=== PATIENT | male | born 1945 | race Caucasian/White ===

== ENCOUNTER 2023-11-04 10:08 | Outpatient (AMB) | payer MEDICARE, BC, SELFPAY ==
[2023-11-04 10:16] VITALS: BMI 25.8
--- NOTE | 2023-11-04 10:16 | MHC.OFFVIS ---
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 The patient states that at times his right leg will ?go numb?. He does have progressively worsening back pain as well. He denies any groin pain. He has done physical therapy which aggravated his symptoms. He has also tried Tylenol and anti-inflammatory medicines which gave him minimal relief. Allergies No Known Allergies Allergy (Verified 11/04/23 10:18) Physical Exam Vital Signs: BMI result Body Mass Index 25.8 Const Other: Well-nourished well-developed very friendly male awake alert and oriented x3 in no acute distress Back/Spine/Pelvis Other: Low back examination shows right-sided paraspinal muscle tenderness, pain with range of motion, positive straight leg raise test on the right at 70 degrees, 4/5 strength with testing of his right hip flexors and knee extensors when compared to 5/5 strength on his left side Extrem Other: Bilateral lower extremity examination shows good capillary refill, no skin lesions noted, normal sensation light touch Bilateral hip examination shows minimal discomfort with range of motion, mild tenderness along his greater trochanteric bursae, no overlying skin lesions Results Reviewed Results Reviewed: X-rays of the patient's bilateral hip show mild diffuse joint space narrowing, no acute bony abnormalities Time x-rays of the patient's lumbar spine shows moderate diffuse degenerative disc disease, no acute bony abnormalities Assessment & Plan Assessment & Plan (1) Low back pain: Code(s): M54.50 - Low back pain, unspecified (2) Chronic hip pain, bilateral: Code(s): M25.551 - Pain in right hip; M25.552 - Pain in left hip; G89.29 - Other chronic pain Plan Mr. Villalobos presents with progressively worsening low back pain which radiates down his right leg as well as associated right leg weakness possibly due to lumbar stenosis or a disc herniation. Thus, I will send the patient for an MRI of his lumbar spine for further evaluation. I will call him with the MRI results once they are available. He will call me prior to that time should his symptoms worsen in any way. Feel free to call me at any time should questions regarding his orthopedic management arise. I spent 22 minutes in reviewing the patient's records and imaging studies, seeing the patient and documenting in the medical record. Orders: Orders XR pelvis 1-2V Today G89.29 - Other chronic pain, M25.551 - Pain in right hip, M25.552 - Pain in left hip XR lumbar spine 2-3V Today M54.50 - Low back pain, unspecified MR lumbar spine wo con Today M54.50 - Low back pain, unspecified Coding Level of Care Code Est Pt Level 2 (44291) Diagnoses Low back pain M54.50 Chronic hip pain, bilateral M25.551; M25.552; G89.29
== END 2023-11-04 11:17 | disposition home or self-care (01) ==
PROVIDERS: Visit Provider Orthopaedic Surgery
DX: M54.50 Low back pain, unspecified (principal); M25.551 Pain in right hip; M25.552 Pain in left hip; G89.29 Other chronic pain
CPT/HCPCS: 99213

== ENCOUNTER 2023-11-04 10:08 | Outpatient (REF) | payer MEDICARE, BC, SELFPAY ==
--- NOTE | ~2023-11-04 | XR_ITS ---
EXAMINATION: XR LUMBAR SPINE XR PELVIS CLINICAL INFORMATION: Low back pain, pain in right hip. COMPARISON: None available. TECHNIQUE: AP view of the pelvis. 3 views of the lumbar spine. FINDINGS: AP PELVIS: Bones are diffusely demineralized. Mild degenerative changes in the bilateral hips. Sclerotic focus overlying the inferomedial aspect of the right femoral head, possibly within bone and soft tissue. Dedicated views of the right hip recommended for further evaluation. Mild degenerative changes in the bilateral sacroiliac joints. LUMBAR SPINE: Mild leftward curvature of the lumbar spine. Bones are diffusely demineralized. Atherosclerotic aortoiliac calcifications. Straightening of the normal lumbar lordosis. Degenerative changes in the imaged lower thoracic spine. Advanced multilevel lumbar spondylosis with multilevel loss of disc space height and hypertrophic change. XR/XR pelvis 1-2V IMPRESSION: 1. Advanced multilevel lumbar spondylosis. 2. Mild degenerative changes in bilateral hips. 3. Sclerotic focus overlying the inferomedial aspect of the right femoral head, possibly within bone and soft tissue. Dedicated views of the right hip recommended for further evaluation. 4. Mild degenerative changes in the bilateral sacroiliac joints.
--- NOTE | ~2023-11-04 | XR_ITS ---
EXAMINATION: XR LUMBAR SPINE XR PELVIS CLINICAL INFORMATION: Low back pain, pain in right hip. COMPARISON: None available. TECHNIQUE: AP view of the pelvis. 3 views of the lumbar spine. FINDINGS: AP PELVIS: Bones are diffusely demineralized. Mild degenerative changes in the bilateral hips. Sclerotic focus overlying the inferomedial aspect of the right femoral head, possibly within bone and soft tissue. Dedicated views of the right hip recommended for further evaluation. Mild degenerative changes in the bilateral sacroiliac joints. LUMBAR SPINE: Mild leftward curvature of the lumbar spine. Bones are diffusely demineralized. Atherosclerotic aortoiliac calcifications. Straightening of the normal lumbar lordosis. Degenerative changes in the imaged lower thoracic spine. Advanced multilevel lumbar spondylosis with multilevel loss of disc space height and hypertrophic change. XR/XR lumbar spine 2-3V IMPRESSION: 1. Advanced multilevel lumbar spondylosis. 2. Mild degenerative changes in bilateral hips. 3. Sclerotic focus overlying the inferomedial aspect of the right femoral head, possibly within bone and soft tissue. Dedicated views of the right hip recommended for further evaluation. 4. Mild degenerative changes in the bilateral sacroiliac joints.
== END 2023-11-04 10:09 | disposition home or self-care (01) ==
LOC: HO.HOSX 10:08
PROVIDERS: Visit Provider Orthopaedic Surgery
DX: M25.551 Pain in right hip (principal); M25.552 Pain in left hip; M54.50 Low back pain, unspecified; G89.29 Other chronic pain
CPT/HCPCS: 72100; 72170; 99212

== ENCOUNTER 2023-12-30 10:28 | Outpatient (AMB) | payer MEDICARE, BC, SELFPAY ==
--- NOTE | 2023-12-30 11:17 | HO.SPINEOV ---
Intake Intake Visit Reasons: LBP Intake Note: Mr. 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 HPI: This 78-year-old male is referred by orthopedic surgery for right hip pain that comes with walking and standing. Additionally, he feels his legs are fatigued after walking or standing. He can not walk the dark anymore for long times. He can not stand on the market for long periods of time and he prefers to sit down. The right hip pain was treated with acupuncture which actually alleviated the symptoms however the fatigue in the legs persists. Hip pathology was excluded by Dr. Downs, orthopedic surgeon PMH: Diabetes mellitus, type 2 Stent placement 6 years ago. An angiogram on year ago was apparently normal. Knee tendon repair, retinal detachment, cataract Medications: SOB diet, metoprolol, metformin, rosuvastatin, pantoprazole Allergies: NKDA Social history: Nonsmoker. Still works Physical Exam: Pleasant male. Normal strength sensation and reflexes. No pathological reflexes. Inward and outward rotation of the right hip is nonpainful. Radiological Studies: MRI done at [place] on 11/18/2023 shows severe L4-5 central stenosis Impression/Plan: This 78-year-old male is suffering from neurogenic claudication due to severe L4-5 central stenosis. He is contemplating surgery. We discussed an L4-5 laminotomy in day surgery. He will need to have a cardiology clearance and primary care physician clearance before surgery. He will call my office if he wants to proceed. Thank you for allowing me to participate in your patients care. total time spent was 50 minutes in counseling ,coordination of plan, personal review of imaging, surgical decision making and subsequent plan Tacos Vidales MD, PhD Spine Fellowship Trained Neurosurgeon Director, [facility] Coding Level of Care Code New Pt Level 4 (09685) Diagnoses Lumbar stenosis with neurogenic claudication M48.062
== END 2023-12-30 11:57 | disposition home or self-care (01) ==
PROVIDERS: Referring Provider Orthopaedic Surgery; Visit Provider Neurological Surgery
DX: M48.062 Spinal stenosis, lumbar region with neurogenic claudication (principal)
CPT/HCPCS: 99204

== ENCOUNTER → 2023-12-30 10:28 | Outpatient (BNVA) | payer MEDICARE, BC, SELFPAY | PROVIDERS: Visit Provider Neurological Surgery | DX: M48.062 Spinal stenosis, lumbar region with neurogenic claudication (principal) | CPT/HCPCS: 99202 ==

== ENCOUNTER 2024-03-17 10:30 | Day surgery (SDC) | payer MEDICARE, SELFPAY ==
[2024-03-03 12:19] VITALS: BP 123/60; PULSE 68; RESP 16; O2SAT 98; BMI 23.5
--- NOTE | 2024-03-03 12:48 | P.CONAN_ITS ---
Documented by User: Kelsey Beckham NP 03/16/24 15:16 HPI - Anesthesia Eval Consult details Narrative: 78yo M for?L4-5 Laminotomy, 03/17/24 Medically cleared at [facility] No recent illness No CP/SOB with very limited activity. Able to walk dog for short distances 3-4 x daily DM. FBS ~100's CAD s/p stent 2011. Only following with PCP now CKD. Follows with Nephro. Last office visit 11/2023. Reviewed incrase in creat. No changes to regimen at that visit with 6 month f/u. Anesthesia Pre-Procedure Meds Is the patient on any of the following meds?: GLP1/DPP4 and SGLT2 Inhib If yes to any meds - educate patient: Pt education - increased risk of aspiration and/or euvolemic DKA and Pt education - possibility of cancelled proc at provider's discretion PMFSH Active Problems Active Problems: All Active Problems Lumbar stenosis with neurogenic claudication (Acute) Low back pain (Acute) Chronic hip pain, bilateral (Acute) Past Medical History Medical History (Updated 03/03/24 @ 12:44 by Gretchen Mcknight RN) Hx of dislocation of elbow Spinal stenosis Weakness of both legs Foot pain, left Gout Diabetes Chronic kidney disease, stage 3b GERD (gastroesophageal reflux disease) Rupture quadriceps tendon Hyperlipemia CAD (coronary artery disease) Family History Family history of problems with anesthesia: No Surgical History Surgical History (Updated 03/03/24 @ 12:19 by Gretchen Mcknight RN) Hx of bilateral cataract extraction Hx of knee surgery History of detached retina repair Hx of colonoscopy History of excision of pilonidal cyst H/O heart artery stent (~2011) History of Problems with Anesthesia: No Social History Social History (Updated 03/03/24 @ 14:24 by Gretchen Mcknight RN) Household Members: Significant Other Housing: House Are you a primary care management specialist to a significant other at home: No Do you presently have visiting nurse or other home services: No Patient Tobacco Use Status: Former Tobacco user Quit Date: Tobacco use type: Cigarette Use of substances other than those prescribed or required for medical reasons: No Have you been hit, kicked, punched, or otherwise hurt by someone within the past year? 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 Meds Allergies Allergy/AdvReac Type Severity Reaction Status Date / Time No Known Allergies Allergy Verified 03/02/24 10:16 Home Medications ?Medication ?Instructions ?Recorded ?Confirmed ?Last Taken ?Type rosuvastatin 40 mg tablet 40 mg PO DAILY 12/30/23 03/02/24 Unknown History acetaminophen 650 mg 1,300 mg PO Q8H 03/02/24 03/02/24 Unknown History tablet,extended release (Tylenol 8 Hour) aspirin 81 mg chewable tablet 81 mg PO DAILY 03/02/24 03/02/24 Unknown History dulaglutide 1.5 mg/0.5 mL 1.5 mg subcut .QTUESDAY 03/02/24 03/02/24 Unknown History subcutaneous pen injector (Trulicity) empagliflozin 10 mg tablet 10 mg PO DAILY 03/02/24 03/02/24 Unknown History (Jardiance) isosorbide mononitrate 60 mg 60 mg PO DAILY 03/02/24 03/02/24 Unknown History tablet,extended release 24 hr metformin 500 mg tablet,extended 2,000 mg PO DAILY 03/02/24 03/02/24 Unknown History release 24 hr metoprolol tartrate 25 mg tablet 25 mg PO DAILY 03/02/24 03/02/24 Unknown History pantoprazole 40 mg tablet,delayed 40 mg PO DAILY@1700 03/02/24 03/03/24 Unknown History release vitamins-lipotropics tablet 2 tab PO DAILY 03/02/24 03/02/24 Unknown History dietary supplement 4 cap PO DAILY 03/03/24 03/03/24 Unknown History phenylephrine-guaifenesin 2.5 20 ml PO Q4-6H PRN Cold Symptoms 03/03/24 03/03/24 Unknown History mg-100 mg/5 mL oral liquid Exam Height,Weight and Vital Signs: Height 5 ft 7 in Weight 68.2 kg Last Vital Signs Pulse 68 03/03/24 12:19 Resp 16 03/03/24 12:19 BP 123/60 03/03/24 12:19 Pulse Ox 98 03/03/24 12:19 O2 Del Method Room Air 03/03/24 12:19 Pertinent Lab Results Pertinent Lab Results: 11/2023 Labs from outside facility BMP WNL except elevated BUN (32), Creat (2.0 CBC WNL Narrative Narrative: EKG 03/2024 NSR @ 64 Cardiac cath 2020 Low LV filling pressure Mild systemic htn No gradiant across aortic valve by catheter pullback from LV to aorta Wide patent mid RCA stent with minimal in-stent restenosis. Mild disease in mid LAD Angiographically left main was nml Chronic 60-70% stensosis of ostium of large first diagonal branch. Angiographically there was no significant change noted in left system. Symptoms likely d/t htn heart disease and deconditioning Airway Mallampati Class: II TM Dist: >3cm Neck ROM: Full Denture: Upper Partial: Lower Loose/Missing/Broken Teeth: Yes Heart: RRR Lungs: CTAB Assessment and Plan Assessment Anesthesia Assessment: Anesthesia Plan Discussed and PAT Visit Final Anesthetic Review Family History of Problems with Anesthesia: No History of Problems with Anesthesia: No Documented by User: Tameka Lobo MD 03/17/24 10:42 [facility] Past Medical History Medical History (Updated 03/03/24 @ 12:44 by Gretchen Mcknight, MILEY) Hx of dislocation of elbow Spinal stenosis Weakness of both legs Foot pain, left Gout Diabetes Chronic kidney disease, stage 3b GERD (gastroesophageal reflux disease) Rupture quadriceps tendon Hyperlipemia CAD (coronary artery disease) Surgical History Surgical History (Updated 03/03/24 @ 12:19 by Gretchen Mcknight, MILEY) Hx of bilateral cataract extraction Hx of knee surgery History of detached retina repair Hx of colonoscopy History of excision of pilonidal cyst H/O heart artery stent (~2011) Social History Social History (Updated 03/03/24 @ 14:24 by Gretchen Mcknight, RN) Household Members: Significant Other Housing: House Are you a primary care management specialist to a significant other at home: No Do you presently have visiting nurse or other home services: No Patient Tobacco Use Status: Former Tobacco user Quit Date: Tobacco use type: Cigarette Use of substances other than those prescribed or required for medical reasons: No Have you been hit, kicked, punched, or otherwise hurt by someone within the past year? 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 Meds Allergies Allergy/AdvReac Type Severity Reaction Status Date / Time No Known Allergies Allergy Verified 03/02/24 10:16 Home Medications ?Medication ?Instructions ?Recorded ?Confirmed ?Last Taken ?Type rosuvastatin 40 mg tablet 40 mg PO DAILY 12/30/23 03/02/24 Unknown History acetaminophen 650 mg 1,300 mg PO Q8H 03/02/24 03/02/24 Unknown History tablet,extended release (Tylenol 8 Hour) aspirin 81 mg chewable tablet 81 mg PO DAILY 03/02/24 03/02/24 Unknown History dulaglutide 1.5 mg/0.5 mL 1.5 mg subcut .QTUESDAY 03/02/24 03/02/24 Unknown History subcutaneous pen injector (Trulicity) empagliflozin 10 mg tablet 10 mg PO DAILY 03/02/24 03/02/24 Unknown History (Jardiance) isosorbide mononitrate 60 mg 60 mg PO DAILY 03/02/24 03/02/24 Unknown History tablet,extended release 24 hr metformin 500 mg tablet,extended 2,000 mg PO DAILY 03/02/24 03/02/24 Unknown History release 24 hr metoprolol tartrate 25 mg tablet 25 mg PO DAILY 03/02/24 03/02/24 Unknown History pantoprazole 40 mg tablet,delayed 40 mg PO DAILY@1700 03/02/24 03/03/24 Unknown History release vitamins-lipotropics tablet 2 tab PO DAILY 03/02/24 03/02/24 Unknown History dietary supplement 4 cap PO DAILY 03/03/24 03/03/24 Unknown History phenylephrine-guaifenesin 2.5 20 ml PO Q4-6H PRN Cold Symptoms 03/03/24 03/03/24 Unknown History mg-100 mg/5 mL oral liquid Assessment and Plan Assessment Anesthesia Assessment: Chart Reviewed Final Anesthetic Review NPO: Yes ASA Class: III Final Preanesthetic Review: No Changes in Pt Med Stat, Meds/Allgs Chart Reviewed, Consent Obtained/Reviewed and Anes Risks/Benef Reviewed Patient Risk: Intermediate Procedure Risk: Intermediate Anesthetic Plan Anesthetic Plan: GA Disposition: Standard PACU
[2024-03-17] VITALS (9 sets, daily range): BP systolic 143–166; BP diastolic 56–69; PULSE 62–67; RESP 12–17; TEMP 36.1–36.6; O2SAT 97–100
--- NOTE | ~2024-03-17 | FL_ITS ---
EXAMINATION: XR FLUOROSCOPY WITH IMAGES CLINICAL INFORMATION: L4-L5 laminectomy. COMPARISON: None available. TECHNIQUE: Fluoroscopy Supervised By: Dr. Tacos Vidales. Fluoroscopy Time: 3.6 seconds. Cumulative Dose: 2.0334 mGy. DAP: 0.7082 Gy-cm2. Images: 5. FINDINGS: Intraoperative fluoroscopy and spot films were performed during a procedure in the OR. A probe is seen overlying the region of L4-L5 posteriorly. Please see Dr. Tacos Vidales' report for complete details. FL/FL guidance in OR IMPRESSION: Intraoperative fluoroscopy and spot films were obtained. Please see Dr. Tacos Vidales' report for complete details.
--- NOTE | 2024-03-17 07:05 | MHC.SHP ---
Pre-Procedural Eval Section A - 24 Hr Update-Section A only Date of Service: 03/17/24 The patient is an INPATIENT: No Changes since office visit: No Cold of Flu in the past 2 weeks, No New Medical Problems, No Changes in Medication and No Patient answered all questions The patient has been examined within 24 hours of the surgical procedure. The History & Physical has been completed within 30 days and I have reviewed it.: No Section B - Complete if H&P > 30 days Chief Complaint: Spinal stenosis, lumbar region with neurogenic Allergies: Allergies Allergy/AdvReac Type Severity Reaction Status Date / Time No Known Allergies Allergy Verified 03/02/24 10:16 Review of Systems Sugical H&P ROS: Negative: Constitution, Cardiovascular, Respiratory, Neurological, Psychiatric, Hem-Onc, Allergic/Immunologic, Gastrointestinal, Genitourinary, Musculoskeletal, Integumentary, Endocrine and Eyes/Ears/Nose/Throat Exam Surgical H&P Exam: Not Evaluated: HEENT, Not Evaluated: Heart, Not Evaluated: Lungs, Not Evaluated: Extremities, Not Evaluated: Abdomen, Not Evaluated: Skin and Not Evaluated: Neurological Plan Diagnosis/Plan: Unchanged L4-5 laminotomy Time Spent With Patient Time: Total time managing care of this patient today __5__ minutes.
--- NOTE | 2024-03-17 10:41 | PM.DS ---
DS: Providers Provider Date of Service: 03/17/24 Date of discharge: 03/17/24 Primary care physician: Houston Rg MD Admitting clinician: Tacos Vidales DS: Diagnosis Discharge Diagnosis (1) Lumbar stenosis with neurogenic claudication: Status: Acute Physical Exam Vital Signs: Vital Signs: Last Vital Signs Pulse 68 03/03/24 12:19 Resp 16 03/03/24 12:19 BP 123/60 03/03/24 12:19 Pulse Ox 98 03/03/24 12:19 O2 Del Method Room Air 03/03/24 12:19 BMI result Body Mass Index 23.5 Discharge Plan Discharge Patient Disposition: Home, Self-Care Referrals: Houston Rg MD [Primary Care Provider] - 1 Week Discharge Medications: Continued acetaminophen [Tylenol 8 Hour] 650 mg Tablet Extended Release 1,300 mg PO Q8H isosorbide mononitrate 60 mg Tablet Extended Release 24 Hr 60 mg PO DAILY pantoprazole 40 mg Tablet,Delayed Release (Dr/Ec) 40 mg PO DAILY@1700 metformin 500 mg Tablet Extended Release 24 Hr 2,000 mg PO DAILY vitamins-lipotropics Tablet 2 tab PO DAILY metoprolol tartrate 25 mg Tablet 25 mg PO DAILY Jardiance 10 mg Tablet 10 mg PO DAILY Trulicity 1.5 mg/0.5 mL pen injector 1.5 mg subcut .QTUESDAY dietary supplement Capsule 4 cap PO DAILY Patient Comments: Substance Fruits + Greens 4 capsule daily phenylephrine-guaifenesin 2.5-100 mg/5 mL Liquid 20 ml PO Q4-6H PRN (Reason: Cold Symptoms) rosuvastatin 40 mg tablet 40 mg PO DAILY Held aspirin 81 mg Tablet,Chewable 81 mg PO DAILY Hold Instructions: Resume on 03/24/24. you may resume aspirin one week from the date of surgery Diet: Advance to usual diet Activity on Discharge: As tolerated Activity Restrictions/Additional Instructions: After your spinal surgery we ask you to observe the following restrictions/guidelines: Activity: It is normal to feel some discomfort as you increase your activity, but that will improve with time. We ask you avoid heavy lifting or acitivities that cause pain. As a general rule, 8lbs is a safe limit for lifting right after surgery. Walk as much as you feel comfortable but not to exhaustion. You will feel extra tired the first few days after surgery. Stay well hydrated. It is OK to walk up and down stairs You may return to driving when you are off narcotics (such as vicodin, oxycodone, dilaudid, etc), and you are back to normal functional capacity. If you have any concerns please check with office before driving. Return to work is specific to each patient and each surgery, so please speak with your doctor/PA at first follow up. Please bring paperwork such as FMLA at that time if you need it filled out. Medications: You may resume aspirin 1 week from the date of surgery For optimum pain control, it is best to start with a combination of 500 mg of Tylenol every 4 hours with 600 mg of Motrin every 8 hours, and use narcotics as needed in between for breakthrough pain. We will give you a short supply of narcotics after surgery (usually one weeks worth). If you need more please call the office but do not use more than prescribed. You will need to give our office 48 hours notice if you need narcotics refilled and we do not fill narcotics on weekends or evenings. If you are on a narcotic, it is a good idea to take a stool softener such as colace or senna to avoid constipation If you take blood thinner such as aspirin, Plavix, Coumadin, Effient, Eliquis etc for conditions such as Afib, DVT, Pulmonary embolus, coronary disease, stents etc please speak with your surgeon about specific details as to when you can resume these medications. You can resume NSAIDs on post op day 1 (eg: Motrin, Naproxen, etc). Follow up: Please call the office, , after surgery to arrange a 3 week follow up for wound check. Wound Care: You may remove your dressing on the first day after surgery. ?You may ?leave open to air. Please do not remove the steri strips underneath. they will fall off on their own in one week. IT IS NORMAL FOR THE WOUND TO OOZE OR BE BLOODY FOR A FEW DAYS AFTER SURGERY. ?IF THIS HAPPENS JUST PLACE NEW DRESSING OVER IT TO AVOID STAINING CLOTHES. You may shower on post op day # 1 We ask that you do not let the water soak the wound. If it does get wet, just towel dry lightly. Please do not scrub your incision or place any type of chemical/ointment on the wound. No tub baths, pools or jacuzzis for one month. If you have any leaking or redness from your wound, or fevers, please call office Print Language: Macedonian
[2024-03-17 10:55] LABS: Glucose, Whole Blood 108 mg/dL (60-115)
[2024-03-17] MEDS: Gabapentin 300 MG CAPSULE PO (11:01)
[2024-03-17] MEDS: methocarbamoL 750 MG TABLET PO (11:01)
[2024-03-17] MEDS: Lactated Ringers 1,000 ML 100 ML IVCONT (11:09)
--- NOTE | 2024-03-17 12:53 | W.PM.OPN ---
Operative Note Operative Note Date of Service: 03/17/24 Narrative: Preoperative Diagnosis: L4-5 spinal stenosis/lateral recess stenosis/neural foraminal stenosis Operation: L4-5 Laminotomy, Partial facetectomy and foraminotomy with use of microscope Consent Informed Consent was obtained for this operation. I have explained the nature, purpose and benefits of the operation. I have discussed the risks and benefit of the operation including possible complications or adverse events with patient/family. Alternative(s) were discussed with the patient with their relative benefits and risks as well as the consequences of not accepting the operation were included in obtaining consent. Surgeon: MUMTAZ SOLANO MD, PHD Procedure Assisted By: Bimal Scott Description of Procedure This patient is suffering from neurogenic claudication due to L4-5 spinal stenosis. The patient was offered a decompression. The procedure complications were explained. The patient was consented. The patient was brought to the operating room and endotracheally intubated. The patient was turned in prone position on the Juanito frame. Prep and drape was done followed by timeout. The Physician hr administrative assistant provided access. A mid lumbar incision was made followed by release of the paravertebral muscle on the right side to expose the L4-5 lamina and facet joints. An intraoperative x-ray was obtained to confirm the correct level. The microscope was brought in. I took over the procedure. The high-speed drill was used to do a L4-5 laminotomy until flavum ligament was reached. A #2 Kerrison was used to expand the laminotomy near flush to the pedicles and to include a partial facetectomy. The flavum ligament was opened and resected with a #3 Kerrison to decompress the underlying thecal sac. The flavum ligament was removed to decompress the lateral recess and the exiting L5 nerve root. bilaterally. A long nerve hook could be easily passed along the medial side of the pedicles as a sign of adequate decompression. Then the patient was turned contralaterally. The spinous process was undercut in preparation for the contralateral decompression. The flavum ligament was resected contralaterally and a partial facetectomy was done contralaterally to decompress the exiting nerve root on that side. The microscope was removed. Hemostasis was done. The physician hr administrative assistant close the Incision in 2 layers. Steri-Strips were used to approximate incision. An OpSite with Tegaderm was used to cover the incision. All sponge needle counts were correct. Patient was extubated and transported in stable is to recovery room. Anesthesia: General Estimated Blood Loss (ml): 20 Complications: None Duration of Surgery: Under 60 Minutes Postoperative Plan: Discharge to home
--- NOTE | 2024-03-17 13:03 | PM.DS ---
DS: Providers Provider Date of Service: 03/17/24 Primary care physician: Houston Rg MD DS: Diagnosis Discharge Diagnosis (1) Lumbar stenosis with neurogenic claudication: Status: Acute DS: Summary Time Attestation Discharge Coordination Time (in mins): 15 Quality: Safe Use of Opioids Does Pt have an Active Cancer Diagnosis on the Problem List?: No Quality: Stroke Does the patient have a stroke diagnosis?: No Physical Exam Vital Signs: Vital Signs: Last Vital Signs Temp 97.2 F 03/17/24 11:09 Pulse 67 03/17/24 11:09 Resp 16 03/17/24 11:09 BP 158/65 H 03/17/24 11:09 Pulse Ox 98 03/17/24 11:09 O2 Del Method Room Air 03/17/24 11:09 BMI result Body Mass Index 23.5 DS: Data Data Completed and Pending Labs on day of discharge: Laboratory Results - last 24 hr 03/17/24 10:52 POC Glucose 108 Discharge Plan Discharge Patient Disposition: Home, Self-Care Referrals: Houston Rg MD [Primary Care Provider] - 1 Week Discharge Medications: New oxycodone 5 mg tablet 5 mg PO Q6H PRN (Reason: severe pain (scale score 7-10)) Qty: 30 0RF Rx Instructions: Partial Fill upon patient request. Continued acetaminophen [Tylenol 8 Hour] 650 mg Tablet Extended Release 1,300 mg PO Q8H isosorbide mononitrate 60 mg Tablet Extended Release 24 Hr 60 mg PO DAILY pantoprazole 40 mg Tablet,Delayed Release (Dr/Ec) 40 mg PO DAILY@1700 metformin 500 mg Tablet Extended Release 24 Hr 2,000 mg PO DAILY vitamins-lipotropics Tablet 2 tab PO DAILY metoprolol tartrate 25 mg Tablet 25 mg PO DAILY Jardiance 10 mg Tablet 10 mg PO DAILY Trulicity 1.5 mg/0.5 mL pen injector 1.5 mg subcut .QTUESDAY dietary supplement Capsule 4 cap PO DAILY Patient Comments: Substance Fruits + Greens 4 capsule daily phenylephrine-guaifenesin 2.5-100 mg/5 mL Liquid 20 ml PO Q4-6H PRN (Reason: Cold Symptoms) rosuvastatin 40 mg tablet 40 mg PO DAILY Held aspirin 81 mg Tablet,Chewable 81 mg PO DAILY Hold Instructions: Resume on 03/24/24. you may resume aspirin one week from the date of surgery Discharge Orders: Discharge Order (Routine); Ordered 03/17/24 Ordered By: Min Lovell Diet: Advance to usual diet Activity on Discharge: As tolerated Activity Restrictions/Additional Instructions: After your spinal surgery we ask you to observe the following restrictions/guidelines: Activity: It is normal to feel some discomfort as you increase your activity, but that will improve with time. We ask you avoid heavy lifting or acitivities that cause pain. As a general rule, 8lbs is a safe limit for lifting right after surgery. Walk as much as you feel comfortable but not to exhaustion. You will feel extra tired the first few days after surgery. Stay well hydrated. It is OK to walk up and down stairs You may return to driving when you are off narcotics (such as vicodin, oxycodone, dilaudid, etc), and you are back to normal functional capacity. If you have any concerns please check with office before driving. Return to work is specific to each patient and each surgery, so please speak with your doctor/PA at first follow up. Please bring paperwork such as FMLA at that time if you need it filled out. Medications: You may resume aspirin 1 week from the date of surgery For optimum pain control, it is best to start with a combination of 500 mg of Tylenol every 4 hours with 600 mg of Motrin every 8 hours, and use narcotics as needed in between for breakthrough pain. We will give you a short supply of narcotics after surgery (usually one weeks worth). If you need more please call the office but do not use more than prescribed. You will need to give our office 48 hours notice if you need narcotics refilled and we do not fill narcotics on weekends or evenings. If you are on a narcotic, it is a good idea to take a stool softener such as colace or senna to avoid constipation If you take blood thinner such as aspirin, Plavix, Coumadin, Effient, Eliquis etc for conditions such as Afib, DVT, Pulmonary embolus, coronary disease, stents etc please speak with your surgeon about specific details as to when you can resume these medications. You can resume NSAIDs on post op day 1 (eg: Motrin, Naproxen, etc). Follow up: Please call the office, , after surgery to arrange a 3 week follow up for wound check. Wound Care: You may remove your dressing on the first day after surgery. ?You may ?leave open to air. Please do not remove the steri strips underneath. they will fall off on their own in one week. IT IS NORMAL FOR THE WOUND TO OOZE OR BE BLOODY FOR A FEW DAYS AFTER SURGERY. ?IF THIS HAPPENS JUST PLACE NEW DRESSING OVER IT TO AVOID STAINING CLOTHES. You may shower on post op day # 1 We ask that you do not let the water soak the wound. If it does get wet, just towel dry lightly. Please do not scrub your incision or place any type of chemical/ointment on the wound. No tub baths, pools or jacuzzis for one month. If you have any leaking or redness from your wound, or fevers, please call office Print Language: Bulgarian
== END 2024-03-17 14:51 | disposition home or self-care (01) ==
PROVIDERS: PCP Internal Medicine; Visit Provider Neurological Surgery
PROC: (CPT 63047; principal; 2024-03-17 13:10)
DX: M48.062 Spinal stenosis, lumbar region with neurogenic claudication (principal); G89.29 Other chronic pain; M25.551 Pain in right hip; R53.83 Other fatigue; R53.1 Weakness; E11.9 Type 2 diabetes mellitus without complications; Z79.84 Long term (current) use of oral hypoglycemic drugs; Z79.899 Other long term (current) drug therapy
CPT/HCPCS: 63047; 82947; J0131; J0690; J1100; J1885; J2405; J2704; J3010

== ENCOUNTER → 2024-03-17 10:30 | Outpatient (BNV) | payer MEDICARE, SELFPAY | PROVIDERS: PCP Internal Medicine; Visit Provider Neurological Surgery | DX: M48.062 Spinal stenosis, lumbar region with neurogenic claudication (principal) | CPT/HCPCS: 63047; 99499 ==

== ENCOUNTER 2024-04-07 09:38 | Outpatient (AMB) | payer MEDICARE, SELFPAY ==
--- NOTE | 2024-04-07 09:40 | A.SPINEOV_ITS ---
Intake Visit Reasons: 1st post op Intake Note: Mr. 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 To recap he was referred to us by Dr. Hernández for persistent right-sided hip pain. He was able to rule out hip pathology. The patient had imaging done that showed stenosis at L4-5, and had a diagnostic injection at L5 showing complete relief of symptoms. Today he reports that his right-sided hip pain is gone, but states that he still has some aches with walking. He reports he is fatigued easily when walking like he was preoperatively. He was informed that he is only 3 weeks out from surgery and this is likely something that is going to take some time as he has been deconditioned from the prolonged stenosis. I encouraged the patient to begin light cardiovascular exercise in order to maximize his healing progress. He inquired about weightlifting/leg work outs, both of which I encouraged him to avoid at this time as he is still acutely healing from his surgery. No new neurological deficits. The patient is able to ambulate well and rises from a seated position without difficulty. Posterior incision site appears closed, well healing, with no signs of drainage. I will follow-up with Amadou in 6 weeks to evaluate for continued healing progress. Min Vidales MD,PhD [facility] Coding Level of Care Code Global (69494) Diagnoses Lumbar stenosis with neurogenic claudication M48.062
== END 2024-04-07 10:06 | disposition home or self-care (01) ==
PROVIDERS: PCP Internal Medicine; Visit Provider Physician Assistant
DX: M48.062 Spinal stenosis, lumbar region with neurogenic claudication (principal)
CPT/HCPCS: 99024

== ENCOUNTER → 2024-04-07 09:38 | Outpatient (BNVA) | payer MEDICARE, SELFPAY | PROVIDERS: PCP Internal Medicine; Visit Provider Physician Assistant | DX: M48.062 Spinal stenosis, lumbar region with neurogenic claudication (principal) | CPT/HCPCS: 99212 ==

== ENCOUNTER 2024-06-13 14:22 | Outpatient (AMB) | payer MEDICARE, SELFPAY ==
--- NOTE | 2024-06-13 14:28 | HO.SPINEOV ---
Intake Visit Reasons: sx on 03/17/24 weak muscle Intake Note: Mr. Villalobos is here today c/o muscular weakness. Imaging Scheduler Required: No Allergies No Known Allergies Allergy (Verified 06/13/24 14:29) Assessment & Plan Assessment & Plan (1) Lumbar stenosis with neurogenic claudication: Code(s): M48.062 - Spinal stenosis, lumbar region with neurogenic claudication Category: Medical Plan Operation: L4-5 Laminotomy, Partial facetectomy and foraminotomy Amadou comes in today for a subsequent postoperative visit discuss his continued weakness despite lumbar decompression at L4-5. To recap he was evaluated by Dr. Vidales and found to have severe lumbar stenosis at L4-5. His initial complaint was weakness and fatigue in his bilateral lower extremities. In addition to this he had some low back and sciatic type pain. The bulk of his pain has largely resolved, but he is left with continued weakness. I did review his MRI imaging as Smith prior to our visit today there is not appear to be any other obvious pathology that could be causing significant weakness with ambulation. L4-5 was by far the worst level noted on his MRI. No new neurological deficits. The patient rises from a seated position and ambulates without much difficulty. (-) Luna's, (-) clonus, patient's reflexes are 2+ intact. Amadou and I discussed his progress at length during this visit today. He may be deconditioned from his prolonged stenosis, and may simply benefit from a round of physical therapy. For the time being he would like to try exercising at home and would like to follow up with Dr. Vidales to ensure there are no other surgical interventions that are warranted. I would suggest he be sent for a round of physical therapy after his next appointment, assuming Dr. Vidales determines no further surgical interventions are needed. Min Vidales MD,PhD [facility] Coding Level of Care Code Global (51625) Diagnoses Lumbar stenosis with neurogenic claudication M48.062
== END 2024-06-13 15:05 | disposition home or self-care (01) ==
PROVIDERS: PCP Internal Medicine; Visit Provider Physician Assistant
DX: M48.062 Spinal stenosis, lumbar region with neurogenic claudication (principal)
CPT/HCPCS: 99024

== ENCOUNTER → 2024-06-13 14:22 | Outpatient (BNVA) | payer MEDICARE, SELFPAY | PROVIDERS: PCP Internal Medicine; Visit Provider Physician Assistant | DX: M48.062 Spinal stenosis, lumbar region with neurogenic claudication (principal) | CPT/HCPCS: 99212 ==

== ENCOUNTER 2024-06-24 14:06 | Outpatient (AMB) | payer MEDICARE, SELFPAY ==
--- NOTE | 2024-06-24 14:17 | A.SPINEOV_ITS ---
Intake Visit Reasons: weak muscle Intake Note: Mr. Villalobos is here today c/o muscle weakness. Resident Hall Director Required: No Allergies No Known Allergies Allergy (Verified 06/13/24 14:29) Assessment & Plan Assessment & Plan (1) Balance disorder: Code(s): R26.89 - Other abnormalities of gait and mobility Category: Medical (2) Muscle atrophy of lower extremity: Code(s): M62.58 - Muscle wasting and atrophy, not elsewhere classified, other site Category: Medical (3) Weakness of both quadriceps muscles: Code(s): M62.81 - Muscle weakness (generalized) Category: Medical Plan Dear colleague, On 06/24/2024, I saw for follow-up Amadou Griffin. He underwent an L4-5 decompression for symptoms of neurogenic claudication. The radicular pain is mostly gone. He continues to suffer from bilateral leg weakness. In fact, the symptoms are progressive and not only involve weakness but also balance problems due to an abnormal sensation in his legs and bottom of his feet. He has fallen a couple of times. He also states that his upper extremities feeling weak. On exam, he ambulates with a spastic gait. Romberg is positive. there is atrophy of the thenar region right more than left. Atrophy of the quadriceps bilaterally is noted. Reflexes are low. No pathological reflexes. The current progressive clinical features and findings on exam warrant further testing. I am going to order an MRI of the cervical spine to exclude spinal cord compression. I will also ordered an EMG test for the differential diagnosis of polyneuropathy. Patient will return to my clinic with the tests are done. I spent 30 minutes in reviewing imaging, performing physical exam and ordering tests. Thank you for allowing me take care of your patient. Tacos Vidales MD, PhD Spine Fellowship Trained Neurosurgeon Director, [facility] Orders: Orders NE electromyogram (EMG) Today M62.58 - Muscle wasting and atrophy, not elsewhere classified, other site, M62.81 - Muscle weakness (generalized), R26.89 - Other abnormalities of gait and mobility MR cervical spine wo con Today R26.89 - Other abnormalities of gait and mobil ity Coding Level of Care Code Est Pt Level 3 (51994) Diagnoses Balance disorder R26.89 Muscle atrophy of lower extremity M62.58 Weakness of both quadriceps muscles M62.81
== END 2024-06-24 14:31 | disposition home or self-care (01) ==
PROVIDERS: PCP Internal Medicine; Visit Provider Neurological Surgery
DX: R26.89 Other abnormalities of gait and mobility (principal); M62.58 Muscle wasting and atrophy, not elsewhere classified, other site; M62.81 Muscle weakness (generalized)
CPT/HCPCS: 99213

== ENCOUNTER → 2024-06-24 14:06 | Outpatient (BNVA) | payer MEDICARE, SELFPAY | PROVIDERS: PCP Internal Medicine; Visit Provider Neurological Surgery | DX: R26.89 Other abnormalities of gait and mobility (principal); M62.58 Muscle wasting and atrophy, not elsewhere classified, other site; M62.81 Muscle weakness (generalized) | CPT/HCPCS: 99212 ==

== ENCOUNTER → 2024-07-23 08:30 | Outpatient (BNV) | payer MEDICARE, SELFPAY | PROVIDERS: PCP Internal Medicine; Visit Provider Radiology Diagnostic Radiology | DX: M62.81 Muscle weakness (generalized) (principal) | CPT/HCPCS: 72141 ==

== ENCOUNTER 2024-07-23 08:33 | Outpatient (REF) | payer MEDICARE, SELFPAY ==
--- NOTE | ~2024-07-23 | MR_ITS ---
EXAMINATION: MR CERVICAL SPINE WITHOUT CONTRAST CLINICAL INFORMATION: Bilateral lower extremity weakness. Instability. COMPARISON: None available. TECHNIQUE: MRI of the cervical spine was obtained using routine sequences without contrast. FINDINGS: Craniocervical junction is intact. No bone marrow STIR signal abnormality. Bone marrow inhomogeneity. Multilevel marginal osteophyte formation and disc desiccation more conspicuous at C5-6. There is a subtle grade 1 retrolisthesis, C3-4 and C5-6. There is a subtle grade 1 anterolisthesis C6-7. Buckling deformity of the dorsal thecal sac likely related to ligamentum flavum hypertrophy, C3-4 and C5-6 levels. Cervical spinal cord signal is normal. C2-3: No cord compression. No neuroforamina stenosis. C3-4: Broad-based disc osteophyte complex formation. Hypertrophy of ligamentum flavum. Reduced AP diameter of the thecal sac. No cord compression. Right neural foramina narrowing on a degenerative basis. C4-5: Broad-based disc osteophyte complex formation abutting the spinal cord. Flattening of the spinal cord. No cord signal abnormality. Bilateral neuroforamina narrowing on a degenerative basis. C5-6: Broad-based disc osteophyte complex formation. Hypertrophy of ligamentum flavum. Reduced AP diameter of the thecal sac and flattening the spinal cord. No cord signal abnormality. Bilateral neuroforamina narrowing on a degenerative basis. C6-7: Broad-based disc osteophyte complex formation abutting the cord. No cord signal abnormality. No neuroforamina narrowing. C7-T1: No cord compression. No neuroforamina narrowing. No prevertebral compartment hematoma, mass or fluid collection. Flow-void signal within the main vessels is normal. Codominant vertebral arteries. MR/MR cervical spine wo con IMPRESSION: Multilevel cervical spondylosis, C3 C7 resulting in central spinal canal stenosis C5-6 and multilevel neural foramina narrowing. No cord edema and or myelopathy. Electronically signed by: Arnoldo Roche MD 08/30/2024 09:06 AM EDT
== END 2024-07-23 08:34 | disposition home or self-care (01) ==
LOC: HO.MRI 08:33
PROVIDERS: PCP Internal Medicine; Visit Provider Neurological Surgery
DX: R26.89 Other abnormalities of gait and mobility (principal)
CPT/HCPCS: 72141

== ENCOUNTER 2024-07-26 09:03 | Outpatient (REF) | payer MEDICARE, SELFPAY ==
--- NOTE | 2024-07-26 09:06 | EMG_ITS ---
Right tibial and peroneal motor studies were performed. Right superficial peroneal, sural, and median and lateral antecubital brachial sensory studies were performed. Tibial H-reflex was obtained and paraspinal muscles were tested with a needle. The patient did not tolerate this test well, limiting the extent of testing. 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 MD KJ Rojo/DWAYNE / [id number]
== END 2024-07-26 09:04 | disposition home or self-care (01) ==
LOC: HO.NEURO 09:03
PROVIDERS: Visit Provider Neurological Surgery
DX: R26.89 Other abnormalities of gait and mobility (principal); M62.58 Muscle wasting and atrophy, not elsewhere classified, other site; M62.81 Muscle weakness (generalized)
CPT/HCPCS: 95886; 95910

== ENCOUNTER 2024-11-16 14:23 | Outpatient (AMB) | payer MEDICARE, SELFPAY ==
--- NOTE | 2024-11-16 15:13 | A.SPINEOV_ITS ---
Intake Visit Reasons: F/u MRI and EMG Intake Note: Mr. Villalobos is here today to F/u on his MRI and EMG Home Health Care Respiratory Therapist Required: No Allergies No Known Allergies Allergy (Verified 11/16/24 15:17) Assessment & Plan Assessment & Plan (1) Peripheral neuropathy: Code(s): G62.9 - Polyneuropathy, unspecified Category: Medical Plan Dear colleague, On 11/16/2023 I saw for follow-up Amadou Villalobos to discuss the MRI of the neck and EMG results. As you know he suffering from balance problems and proximal leg weakness. The MRI of the cervical spine shows mild C5-6 stenosis however the EMG is positive for polyneuropathy which explains his symptoms. He was already evaluated by Neurology. I discharged him from further follow-up. Thank you for allowing me take care of this patient. Tacos Vidales MD, PhD Spine Fellowship Trained Neurosurgeon Director, [facility] Coding Level of Care Code Est Pt Level 3 (65319) Diagnoses Peripheral neuropathy G62.9
== END 2024-11-16 16:03 | disposition home or self-care (01) ==
PROVIDERS: PCP Internal Medicine; Visit Provider Neurological Surgery
DX: G62.9 Polyneuropathy, unspecified (principal)
CPT/HCPCS: 99213

== ENCOUNTER → 2024-11-16 14:23 | Outpatient (BNVA) | payer MEDICARE, SELFPAY | PROVIDERS: PCP Internal Medicine; Visit Provider Neurological Surgery | DX: G62.9 Polyneuropathy, unspecified (principal) | CPT/HCPCS: 99212 ==